=== PATIENT | female | born 2000 | race Caucasian/White ===

== ENCOUNTER 2019-03-31 15:36 | Emergency (ER) | payer MEDICAID ==
[~2019-03-31] VITALS: Ht 162.6 cm; Wt 83.5 kg
[2019-03-31 15:53] VITALS: Ht 162.6 cm; Wt 83.5 kg
[2019-03-31 18:25] LABS: UA SPECIFIC GRAVITY 1.025 (1.005-1.035); microscopic required? YES; urine erythrocyte 1+ (NEGATIVE)
[2019-03-31 18:35] LABS: BASOPHIL % 0.1 % (0-2); CALCIUM 7.6 mg/dL (8.5-10.1); CARBON DIOXIDE 26.4 mmol/L (21-32); CHLORIDE SERUM 100 mmol/L (98-107); CREATININE SERUM 0.6 mg/dL (0.6-1.0); GFR1 > 60 mL/min; GLUCOSE SERUM 97 mg/dL (74-106); PLATELET COUNT 266 x10^3mcL (130-400); POTASSIUM SERUM 3.2 mmol/L (3.5-5.1); RED CELL DISTRIBUTION WIDTH 14.4 % (11.5-14.5); SODIUM SERUM 137 mmol/L (136-145)
[2019-03-31 18:40] LABS: ALKALINE PHOSPHATASE 65 U/L (46-116); ALT/SGPT 20 U/L (14-59); AST/SGOT 15 U/L (15-37); BILIRUBIN TOTAL 0.2 mg/dL (0.20-1.00); TOTAL PROTEIN, SERUM 7.4 g/dL (6.4-8.2)
[2019-03-31 19:15] VITALS: BP 96/56
== END 2019-03-31 19:15 | disposition home or self-care (01) ==
LOC: ED 15:36
PROVIDERS: Emergency Medicine
DX: N12 Tubulo-interstitial nephritis, not specified as acute or chronic (principal)
CPT/HCPCS: J0696; J1885; J2405; J7030; J7060

== ENCOUNTER 2019-04-01 15:57 | Emergency (ER) | payer MEDICAID ==
[~2019-04-01] VITALS: Ht 162.6 cm; Wt 84.4 kg
[2019-04-01 16:01] VITALS: Ht 162.6 cm; Wt 84.4 kg
[2019-04-01 19:45] VITALS: BP 96/58
== END 2019-04-01 19:45 | disposition home or self-care (01) ==
LOC: ED 15:57
DX: N12 Tubulo-interstitial nephritis, not specified as acute or chronic (principal); R51 Headache; R50.9 Fever, unspecified
CPT/HCPCS: J0696; J1885; J2405; J7030; J7060